=== PATIENT | female | born 1985 | race Caucasian/White ===

== ENCOUNTER 2017-07-17 21:55 | Emergency (ER) | payer MEDICAID ==
[2017-07-17 22:45] LABS: STREP A SCREEN NEGATIVE (NEGATIVE)
[2017-07-17 22:50] LABS: INFLUENZA A NEGATIVE (NEGATIVE); INFLUENZA B NEGATIVE (NEGATIVE)
--- NOTE | 2017-07-17 22:53 | Emergency Department Record ---
History of Present Illness - General Chief Complaint: Fever Stated Complaint: FEVER Time Seen by Provider: 07/17/17 22:02 Source: Patient Mode of Arrival: Ambulatory Limitations: No limitations - History of Present Illness Initial Comments: 32 yo female presents to ED for evaluation of fever and body ache symptoms that began earlier today. Patient reports mild sore throat symptoms, denies urinary symptoms, cough, neck stiffness, or abdominal pain symptoms on examination. Patient denies health problems at her baseline, but does report that her son at home are ill with bilateral ear infections and URI symptoms. MD Complaint: Fever, Malaise Onset/Timin -: Hour(s) Associated Symptoms: Chills Treatments Prior to Arrival: Ibuprofen - Related Data Home Medications Medication Instructions Recorded Confirmed Last Taken Citalopram Hydrobromide [Celexa] 10 mg PO QHS 07/17/17 07/17/17 07/16/17 Norgestimate-Ethinyl Estradiol 1 each PO DAILY 07/17/17 07/17/17 07/16/17 [Ortho Tri-Cyclen] Allergies Allergy/AdvReac Type Severity Reaction Status Date / Time No Known Drug Allergies Allergy Verified 07/17/17 22:15 Travel Screening - Travel/Exposure Within Last 30 Days Have you traveled within the last 30 days?: No - Travel Symptoms Symptom Screening: None Review of Systems Constitutional: Reports: Chills, Fever, Malaise, Night sweats Eyes: Denies: Eye discharge, Eye pain ENT: Reports: Throat pain. Denies: Congestion, Ear pain, Epistaxis Respiratory: Denies: Cough, Dyspnea Cardiovascular: Denies: Chest pain, Dyspnea on exertion Endocrine: Reports: Fatigue. Denies: Heat or cold intolerance Gastrointestinal: Denies: Constipation, Vomiting Genitourinary: Denies: Dysuria, Frequency, Incontinence, Retention Musculoskeletal: Denies: Arthralgia, Back pain, Gout, Joint swelling, Neck pain Skin: Denies: Bruising, Change in color Neurological: Reports: Headache. Denies: Confusion, Seizure Psychiatric: Denies: Anxiety Hematological/Lymphatic: Denies: Anemia, Blood Clots Past Medical History - SOCIAL HISTORY Smoking Status: Current every day smoker - RESPIRATORY Hx Respiratory Disorders: No - CARDIOVASCULAR Hx Cardio Disorders: Yes Hx Hypertension: Yes (monitoring it) - NEURO Hx Neuro Disorders: No - GI Hx GI Disorders: No - Hx Genitourinary Disorders: No - ENDOCRINE Hx Endocrine Disorders: No - MUSCULOSKELETAL Hx Musculoskeletal Disorders: No - PSYCH Hx Psych Problems: Yes Hx Anxiety: Yes - HEMATOLOGY/ONCOLOGY Hx Hematology/Oncology Disorders: No Family Medical History Any Significant Family History?: Yes Hx HTN: Mother Physical Exam - General General Appearance: Alert, Oriented x3, Cooperative, Mild distress Limitations: No limitations - Head Head exam: Atraumatic, Normocephalic, Normal inspection Head exam detail: negative: Abrasion, Contusion, Mclaughlin's sign, General tenderness, Hematoma, Laceration - Eye Eye exam: Normal appearance. negative: Conjunctival injection, Periorbital swelling, Periorbital tenderness, Scleral icterus - ENT ENT exam: Normal orophraynx Ear exam: negative: Auricular hematoma, Auricular trauma Nasal Exam: negative: Active bleeding, Discharge, Dried blood, Foreign body Mouth exam: negative: Drooling, Laceration, Muffled voice, Tongue elevation Throat exam: negative: Tonsillar erythema, Tonsillomegaly, Tonsillar exudate, R peritonsillar mass, L peritonsillar mass - Neck Neck exam: Normal inspection. negative: Lymphadenopathy, Meningismus, Tenderness - Respiratory Respiratory exam: Normal lung sounds bilaterally. negative: Rales, Respiratory distress, Rhonchi, Stridor - Cardiovascular Cardiovascular Exam: Normal rhythm, Normal heart sounds, Tachycardia - GI/Abdominal GI/Abdominal exam: Soft. negative: Rebound, Rigid, Tenderness - Rectal Rectal exam: Deferred - exam: Deferred - Extremities Extremities exam: Normal inspection. negative: Calf tenderness, Pedal edema, Tenderness - Back Back exam: Denies: CVA tenderness (R), CVA tenderness (L) - Neurological Neurological exam: Alert, Normal gait, Oriented X3 - Psychiatric Psychiatric exam: Normal affect, Normal mood - Skin Skin exam: Normal color. negative: Abrasion Type of lesion: negative: abrasion Course Vital Signs 07/17/17 22:16 Temperature 98.8 F Pulse Rate 120 H Respiratory 16 Rate Blood Pressure 159/97 Pulse Ox 96 - Reevaluation(s) Reevaluation #1: 07/17/17 22:51 Influenza: Negative Rapid Strep: Negative Patient was updated on her results, no other source of bacterial infection is present on either history or physical examination. Recommended symptomatic treatment for likely viral process with instructions for follow-up with her PCP in 1-3 days as directed. Pulse is down to 98 on re-examination. Patient verbalizes understanding of all instructions. Medical Decision Making - Lab Data Lab Results 07/17/17 Range/Units 22:26 Group A Strep Screen Negative (NEGATIVE) Disposition Disposition: Discharge Clinical Impression: Viral syndrome Fever Qualifiers: Fever type: unspecified Qualified Code(s): R50.9 - Fever, unspecified Disposition: Home, Self-Care Condition: (2) Stable Instructions: Fever in Adults (ED) Additional Instructions: Return to ED if your symptoms worsen or if you have any concerns. Drink plenty of fluids and rest. Tylenol and Motrin as needed for fever/bodyaches. Follow-up with your family doctor in 1-3 days as directed. Forms: Patient Portal Access Time of Disposition: 22:53 Quality - Quality Measures Quality Measures: N/A - Blood Pressure Screening Does Patient Have Any of the Following: No Blood Pressure Classification: Hypertensive Reading Systolic Measurement: 136 Diastolic Measurement: 93 Screening for High Blood Pressure: < First Hypertensive BP, F/U Documented > [ [id number]] First Hypertensive Follow-up Interventions: Referral to alternative/primary care provider.
== END 2017-07-17 23:05 | disposition home or self-care (01) ==
LOC: ER 21:55
DX: B34.9 Viral infection, unspecified (principal); R50.81 Fever presenting with conditions classified elsewhere; R53.81 Other malaise
CPT/HCPCS: 87400; 87880; 99282